=== PATIENT | female | born 1950 | race Caucasian/White ===

== ENCOUNTER 2019-07-29 10:04 | Emergency (ER) | payer MEDICARE ==
[~2019-07-29] VITALS: Ht 170.2 cm; Wt 86.0 kg
[2019-07-29] MEDS ORDERED: HYDROcodone/acetaminophen 10/325mg tab PO ONE (10:25)
[2019-07-29] MEDS ORDERED: HYDR-4383 PO (11:14)
[2019-07-29 11:34] VITALS: BP 115/82
== END 2019-07-29 11:36 | disposition home or self-care (01) ==
LOC: ER 10:05
DX: M47.816 Spondylosis without myelopathy or radiculopathy, lumbar region (principal); M54.5 Low back pain; M25.551 Pain in right hip; M25.552 Pain in left hip; G89.29 Other chronic pain; Z98.890 Other specified postprocedural states; Z88.5 Allergy status to narcotic agent
CPT/HCPCS: 72110; 99284